=== PATIENT | female | born 1940 | race Caucasian/White ===

== ENCOUNTER 2020-02-24 05:35 | Inpatient (IN) | payer MEDICARE, MEDICAID, SELFPAY ==
[2020-02-24] VITALS (12 sets, daily range): BP systolic 110–172; BP diastolic 57–84; PULSE 65–75; RESP 14–20; TEMP 36.4–36.6; O2SAT 92–100; BMI 21.6
--- NOTE | 2020-02-24 06:04 | ED_ITS ---
HPI - Abdominal Pain General: Chief Complaint: Abdominal Pain Stated Complaint: ABD PAIN Time Seen by Provider: 02/24/20 06:03 History of Present Illness: HPI narrative: 79-year-old female presents emergency room with chief complaint of abdominal pain. Patient refers pain to the right upper quadrant states it began about 1 AM when she got up she was moving around the house and felt like something dropped in the right upper quadrant because of severe pain since then she has some nausea but no vomiting no diarrhea. She has had this intermittently for the last months it is more intense tonight. She denies hematochezia melena hematemesis or coffee-ground emesis no dysuria urgency or frequency. She is not really taking anything for it. No previous abdominal surgeries. Patient has had symptoms of right upper quadrant pain for the last couple of months. She has noted that it is worse with eating spicy foods or fatty foods and dairy products. She has begun avoiding those. Associated Symptoms: Reports nausea; Denies bloating, chills, coffee ground emesis, constipation, diarrhea, dysuria, fever(s), hematochezia, hematemesis, melena and vomiting Review of Systems Const: Denies: fever, chills, body aches, change in appetite, fatigue or malaise ENMT: Denies: throat pain, ear pain, nasal discharge or nasal congestion Card: Denies: chest pain, edema, shortness of breath on exertion or shortness of breath when lying down Resp: Denies: shortness of breath, productive cough or non-productive cough GI: Reports: abdominal pain and nausea; Denies: vomiting, vomiting blood, coffee grounds in vomit, diarrhea, constipati on, bloating, blood in stool or black tarry stool : Denies: flank pain, difficulty urinating, painful urination, urinary frequency or urinary urgency Skin/Breast: Denies: rash or itching PFSH ED PFSH: Medical History Hypertension Hypothyroidism Osteoarthritis Family History Mother , Lived to the age of 103, healthy No problems noted. Social History Smoking and tobacco status: former smoker Alcohol intake: former Substance/Drug Use: never Physical Exam Const: COMMON NORMALS: average body habitus, oriented x3 and alert GENERAL APPEARANCE: cooperative, comfortable, well kempt and well developed NUTRITIONAL APPEARANCE: obese ORIENTATION/CONSCIOUSNESS: Yes awake, Yes oriented to person and Yes oriented to place HENMT: COMMON NORMALS: normocephalic, head/scalp atraumatic, EAC's normal, TM's normal bilaterally, external nose normal, moist oral mucous membranes and oropharynx normal HEAD & SCALP: normocephalic and atraumatic NOSE: external nose normal EXTERNAL AUDITORY CANAL: EAC's normal TYMPANIC MEMBRANE: TM's normal bilaterally MOUTH: oral and palatal mucosa normal, lip normal and tongue normal THROAT: posterior oropharynx normal and tonsils normal Eye: COMMON NORMALS: PERRL, EOMs intact bilaterally, conjunctivae normal and no scleral icterus CONJUNCTIVA: Yes conjunctivae normal PUPIL: Yes PERRL Neck/C-Spine: COMMON NORMALS: full ROM, no lymphadenopathy, supple, no meningeal signs and thyroid normal THYROID: thyroid normal and asymmetrical Lymph: LYMPHATIC: no lymphadenopathy noted Resp: COMMON NORMALS: normal respiratory effort, no retractions, no use of accessory muscles and clear to auscultation bilaterally AUSCULTATION: clear to auscultation bilaterally Cardio: COMMON NORMALS: regular rate and regular rhythm RATE: regular rate RHYTHM: regular rhythm HEART SOUNDS: no murmurs GI: COMMON NORMALS: normal to inspection, nondistended, normoactive bowel sounds and no hepatosplenomegaly AUSCULTATION: Yes normoactive bowel sounds PALPATION: Yes tender (Positive Peña sign) Details: RUQ and Yes no hepatosplenomegaly : COMMON NORMALS: Yes no CVA tenderness BLADDER/KIDNEY EXAM: Yes no CVA tenderness Back/Pelvis: COMMON NORMALS: no CVA tenderness LUMBAR SPINE/LOWER BACK: Yes normal to inspection Extremity: COMMON NORMALS: no clubbing, cyanosis or edema, no calf tenderness and no pedal edema Neuro: COMMON NORMALS: oriented x3 SENSORIUM/ORIENTATION: Yes alert, Yes oriented to person and Yes oriented to place MENINGEAL SIGNS: Yes no meningeal signs Psych: APPEARANCE: Yes well kempt Skin: COMMON NORMALS: no rashes or lesions noted and skin turgor normal GENERAL SKIN EXAM: no rashes or lesions noted and turgor normal Course Vital Signs: Vital signs: Vital Signs Temperature 98 F 02/25/20 04:00 Pulse Rate 84 02/25/20 04:00 Respiratory Rate 20 H 02/25/20 05:50 Blood Pressure 124/72 02/25/20 04:00 Pulse Oximetry 93 02/25/20 04:00 MDM - Abdominal Pain MDM Narrative: Medical decision making narrative: Patient has severe right upper quadrant pain to the point where it is difficult for her to take a deep breath. She has some moderate cirrhosis she has hydrops on her gallbladder with no evidence of stones. MRCP does not show any obstruction read the notes on the ultrasound and MRCP from Dr. Lucas. I discussed it with Dr. Lucas she feels this represents an acute cholecystitis. I have discussed with Dr. Ozuna as well as with Dr. Woodall. Dr. Ozuna will admit his primary. We have supplemented her potassium with IV. We will keep her n.p.o. I also covered her with Zosyn. She does have a mild relatively asymptomatic urinary tract infection which should be easily covered by the antibiotics we have given her. Lab Data: Labs: Lab Results 02/24/20 02/24/20 02/24/20 Range/Units 05:49 05:59 05:59 WBC 9.3 (4.0-10.0) 10^3/ uL RBC 5.10 (4.1-5.3) 10^6/u L Hgb 15.9 H (11.5-15.3) g/dL Hct 47.4 H (37.0-47.0) % MCV 92.9 (81-99) fL MCH 31.2 (28.0-34.0) pg MCHC 33.5 (30.0-36.0) g/dL RDW 15.9 H (12.1-15.1) % Plt Count 143 (130-400) 10^3/c mm MPV 10.2 (7.4-10.4) fL Neut % (Auto) 85.6 % Lymph % (Auto) 10.9 % Garfield % (Auto) 3.0 % Eos % (Auto) 0.1 % Baso % (Auto) 0.2 % Neut # (Auto) 8.0 H (1.8-7.7) 10^3/u L Lymph # (Auto) 1.0 (0.8-4.8) 10^3/u L Garfield # (Auto) 0.3 (0.2-0.9) 10^3/u L Eos # (Auto) 0.0 (0.0-0.8) 10^3/u L Baso # (Auto) 0.0 (0.0-0.1) 10^3/u L Nucleated RBC % (a uto) 0 % Nucleated RBCs # 0.0 /100WBC Sodium 139 (136-145) mmol/L Potassium 2.4 L* (3.5-5.1) mmol/L Chloride 96 L (98-107) mmol/L Carbon Dioxide 31 H (22-29) mmol/L Anion Gap 14.4 (5-19) BUN 12 (8-23) mg/dL Creatinine 0.6 (0.5-0.9) mg/dL Glucose 126 H (65-115) mg/dL Calculated Osmolal ity 286 (285-295) mOsm/k g Calcium 8.8 (8.5-10.5) mg/dL Magnesium (1.7-2.3) mg/dL Total Bilirubin 1.8 H (0.15-1.2) mg/dL AST 53 H (0-32) U/L ALT 36 H (0-33) U/L Alkaline Phosphata se 202 H (35-105) IU/L Total Protein 6.9 (6.6-8.7) g/dL Albumin 3.2 L (3.5-5.2) g/dL Globulin 3.7 (1.3-4.6) g/dL Lipase 26 (13-60) U/L Urine Color Yellow (Yellow) Urine Appearance Cloudy (CLEAR) Urine pH 6 (5-7) Ur Specific Gravit y 1.020 (1.005-1.030) Urine Protein Neg (Negative) Urine Glucose (UA) Norm (Normal) Urine Ketones Negative (Negative) Urine Blood Neg (Negative) Urine Nitrate Negative (Negative) Urine Bilirubin Neg (NEGATIVE) Urine Urobilinogen 1 H (Negative) mg/dL Ur Leukocyte Nichole ase Trace H (Negative) Urine RBC 0-4 H (0-2) /hpf Urine WBC 40-55 H (0-5) /hpf Ur Squamous Epith Cells 5-10 H (0-5) Ur Transition Epit h Cell 0-4 /hpf Urine Bacteria 4+ H (NONE) 02/24/20 Range/Units 05:59 WBC (4.0-10.0) 10^3/ uL RBC (4.1-5.3) 10^6/u L Hgb (11.5-15.3) g/dL Hct (37.0-47.0) % MCV (81-99) fL MCH (28.0-34.0) pg MCHC (30.0-36.0) g/dL RDW (12.1-15.1) % Plt Count (130-400) 10^3/c mm MPV (7.4-10.4) fL Neut % (Auto) % Lymph % (Auto) % Garfield % (Auto) % Eos % (Auto) % Baso % (Auto) % Neut # (Auto) (1.8-7.7) 10^3/u L Lymph # (Auto) (0.8-4.8) 10^3/u L Garfield # (Auto) (0.2-0.9) 10^3/u L Eos # (Auto) (0.0-0.8) 10^3/u L Baso # (Auto) (0.0-0.1) 10^3/u L Nucleated RBC % (a uto) % Nucleated RBCs # /100WBC Sodium (136-145) mmol/L Potassium (3.5-5.1) mmol/L Chloride (98-107) mmol/L Carbon Dioxide (22-29) mmol/L Anion Gap (5-19) BUN (8-23) mg/dL Creatinine (0.5-0.9) mg/dL Glucose (65-115) mg/dL Calculated Osmolal ity (285-295) mOsm/k g Calcium (8.5-10.5) mg/dL Magnesium 1.8 (1.7-2.3) mg/dL Total Bilirubin (0.15-1.2) mg/dL AST (0-32) U/L ALT (0-33) U/L Alkaline Phosphata se (35-105) IU/L Total Protein (6.6-8.7) g/dL Albumin (3.5-5.2) g/dL Globulin (1.3-4.6) g/dL Lipase (13-60) U/L Urine Color (Yellow) Urine Appearance (CLEAR) Urine pH (5-7) Ur Specific Gravit y (1.005-1.030) Urine Protein (Negative) Urine Glucose (UA) (Normal) Urine Ketones (Negative) Urine Blood (Negative) Urine Nitrate (Negative) Urine Bilirubin (NEGATIVE) Urine Urobilinogen (Negative) mg/dL Ur Leukocyte Nichole ase (Negative) Urine RBC (0-2) /hpf Urine WBC (0-5) /hpf Ur Squamous Epith Cells (0-5) Ur Transition Epit h Cell /hpf Urine Bacteria (NONE) Discharge Plan Discharge Patient Disposition: Admitted As Inpatient Admit Provider: Melinda Ozuna Clinical Impression: Cholecystitis, Hypertension, Acute hypokalemia, Cystitis Condition: Stable Interventions: ED Discharge Assessment Last Done: 02/24/20 14:52 Discharge Date/Time: 02/24/20 15:10 Coding Level of Care Code ED New Accounts Representative for Chg Fwd Exam Comprehensive
--- NOTE | 2020-02-24 06:07 | PC.NURSE ---
Tatiana Patel[facility] [phone] daughter
[2020-02-24] MEDS: sodium chloride 0.9% 500 ML 999 ML IV (06:15)
[2020-02-24 06:18] LABS: Basophils % 0.2 %; Eosinophils % 0.1 %; Hematocrit 47.4 % (37.0-47.0); Hemoglobin 15.9 g/dL (11.5-15.3); Lymphocytes % 10.9 %; Mean Corpuscular HGB Conc 33.5 g/dL (30.0-36.0); Mean Corpuscular Hemoglobin 31.2 pg (28.0-34.0); Mean Corpuscular Volume 92.9 fL (81-99); Mean Platelet Volume 10.2 fL (7.4-10.4); Monocytes # 0.3 10^3/uL (0.2-0.9); Neutrophils % 85.6 %; Nucleated Red Blood Cells % 0 %; Platelet Count 143 10^3/cmm (130-400); Red Cell Distribution Width 15.9 % (12.1-15.1); White Blood Count 9.3 10^3/uL (4.0-10.0)
[2020-02-24] MEDS: ondansetron 2 mg/ML SDV 2 mL 4 MG IVP (06:18)
--- NOTE | 2020-02-24 06:18 | US_ITS ---
WS: [id number] RIGHT UPPER QUADRANT ULTRASOUND HISTORY: Abdominal pain COMPARISON: None available. Liver: 12.0 cm in length. Coarsened hepatic echotexture with undulating nodular surface. No bile duct dilatation. Variable echogenicity may be related to cirrhosis but underlying neoplasm not excluded. Small amount of fluid adjacent to the liver capsule. Gallbladder: Gallbladder measures 9.2 cm in length. Transverse diameter 4.0 cm. No wall thickening or stones. CBD: 1.0 cm Pancreas: Not visualized. Right kidney: 10.1 cm in length. Normal echogenicity with no mass or hydronephrosis. Aorta and IVC: Unremarkable. Small amount of ascites. 3. Recommendation: Follow-up CT abdomen and pelvis with IV and oral contrast to better evaluate the liver and gallbladder. US/US gall bladder [id number] IMPRESSION: 1. Abnormal liver echotexture. Probably on the basis of cirrhosis. Infiltratin g neoplasm not excluded. 2. Abnormal gallbladder. Mild gallbladder hydrops with mildly dilated common b ile duct.
[2020-02-24 06:21] LABS: Add Urine Microscopic? YES; Bilirubin Urine Neg (NEGATIVE); Blood Urine Neg (Negative); Glucose Urine UA Norm (Normal); Ketones Urine Negative (Negative); Leukocyte Esterase Urine Trace (Negative); Nitrate Urine Negative (Negative); Protein Urine Neg (Negative); Urine Appearance Cloudy (CLEAR); Urine Color Yellow (Yellow); Urobilinogen Urine 1 mg/dL (Negative); pH Urine 6 (5-7)
[2020-02-24] MEDS: morphine 4 mg/mL SDV 1 mL 2 MG IVP (06:28)
[2020-02-24 06:31] LABS: Alanine Aminotransferase 36 U/L (0-33); Albumin Level 3.2 g/dL (3.5-5.2); Alkaline Phosphatase 202 IU/L (35-105); Anion Gap 14.4 (5-19); Aspartate Amino Transferase 53 U/L (0-32); Blood Urea Nitrogen 12 mg/dL (8-23); Calcium 8.8 mg/dL (8.5-10.5); Carbon Dioxide 31 mmol/L (22-29); Chloride 96 mmol/L (98-107); Globulin 3.7 g/dL (1.3-4.6); Glucose 126 mg/dL (65-115); Lipase 26 U/L (13-60); Osmolality Calculated 286 mOsm/kg (285-295); Sodium 139 mmol/L (136-145); Total Bilirubin 1.8 mg/dL (0.15-1.2); Total Protein 6.9 g/dL (6.6-8.7)
[2020-02-24 06:40] LABS: Potassium 2.4 mmol/L (3.5-5.1)
[2020-02-24 06:51] LABS: Add Urine Culture? Yes; Bacteria Urine 4+; RBC Urine 0-4 /hpf (0-2); Transitional Epi Cells Urine 0-4 /hpf; WBC Urine 40-55 /hpf (0-5)
[2020-02-24] MEDS: sodium chlor 0.9% + KCl 20 mEq 20 MEQ/1,000 ML BAG 125 MEQ IV (07:30)
[2020-02-24] MEDS: morphine 4 mg/mL SDV 1 mL IVP ×2 (07:30→11:04)
[2020-02-24] MEDS: piperacillin-tazobactam 3.375 GM in sodium chloride 0.9% (plus) 50 ML IV ×2 (08:31→18:35)
[2020-02-24] MEDS: potassium chloride premix 40 MEQ/100 ML PREMIX 25 MEQ IV (08:31)
--- NOTE | 2020-02-24 08:34 | MR_ITS ---
WS: [id number] MRCP (MAGNETIC RESONANCE CHOLANGIOPANCREATOGRAPHY) HISTORY: possible billary obstruction COMPARISON: 02/24/2020 gallbladder ultrasound. TECHNIQUE: Multiple sequences are performed to evaluate the intra and extrahepatic ducts. Gallbladder measures 8.5 cm in length. Transverse diameter 3.4 cm. No intraluminal filling defect. Th ere is pericholecystic fluid and a small amount of fluid around the liver and spleen. Very mild centr al intrahepatic dilatation. Common bile duct is dilated measuring up to 9 mm. Duct tapers distally to wards the ampulla of the bladder. No obstructing stone. Cannot exclude a stenosis at the ampulla Vate r. Cirrhosis. Small hiatal hernia. Pancreatic duct measures 2 mm. MR/MR MRCP [id number] IMPRESSION: 1. Mildly hydropic gallbladder without stones. Findings suspicious for cholecy stitis. 2. Dilated common bile duct and central hepatic ducts. No obstructing stone id entified. Consider stricture at the ampulla of Vater. 3. Small amount of ascites around the spleen and pancreas.
--- NOTE | 2020-02-24 09:41 | PC.NURSE ---
pt transported to MRI at [facility] by ambulance
--- NOTE | 2020-02-24 10:46 | PC.NURSE ---
pt returned from MRI at this time
--- NOTE | 2020-02-24 10:59 | XR_ITS ---
WS: [id number] PORTABLE CHEST HISTORY: dyspnea/cough COMPARISON: None available. Mild emphysema. Central RIGHT lung granuloma. No pleural effusion or pneumothorax. Cardiac size: Normal. Mediastinum/Aorta: Normal mediastinum. No osseous abnormality seen. XR/XR chest 1V portable [id number] IMPRESSION: Unremarkable portable chest.
--- NOTE | 2020-02-24 11:01 | PC.NURSE ---
pt continues to be hypoxic on room air (86%) and requires supplemental oxygen via nasal cannula which she does not where at home. ED Physician notified and orders received.
--- NOTE | 2020-02-24 12:21 | PC.NURSE ---
Dr. Jj at bedside to evaluate patient
--- NOTE | 2020-02-24 13:05 | PM.HP ---
Providers/Chief Complaint Admitting Physician: Melinda Ozuna DO Chief Complaint: ABD PAIN History of Present Illness Bel Russell is a 79 year old female with a past medical history of hypertension, hypothyroidism, osteoarthritis and COPD that presented to the emergency department today for abdominal pain. She stated that she has been having intermittent right upper quadrant abdominal pain that is worse with eating over the past 3 to 4 months. She stated that this morning she woke up at 1 AM to let her dogs out and she began noticing significantly worsening pain in the right upper quadrant. She stated that the pain is typically worse with any type of dairy products or spicy foods. She stated that she has associated nausea with this. She reported that she has been eating a lot of applesauce as it does not cause her pain to recur. Patient presented to the emergency department today due to concern for abdominal discomfort noted to have concern for cholecystitis therefore general surgeon was consulted. Patient was made aware of the concern but reported that she would like to hold off on any surgical intervention at this time if possible. Review of Systems Const: Denies: fever or chills Eyes: Denies: change in vision ENMT: Denies: nasal congestion Card: Denies: chest pain, palpitations or edema Resp: Denies: shortness of breath, productive cough or coughing up blood GI: Reports: abdominal pain and nausea; Denies: vomiting, diarrhea, constipation, blood in stool or black tarry stool : Denies: painful urination or blood in urine Musc: Denies: extremity pain or muscle cramps Skin/Breast: Denies: rash or new lesion Neuro: Denies: headache or dizziness Psych: Denies: anxiety or depression Endo: Denies: excessive urination or hot flashes Yovany/Lymph: Denies: easy bruising or easy bleeding Medications/Allergies Home Medications Medication Instructions Recorded Confirmed Last Taken Type acetaminophen [Tylenol Extra 1,000 mg PO TID PRN 02/24/20 02/24/20 02/24/20 01:03 History Strength] albuterol sulfate [Ventolin HFA] 2 puff INHALATION Q6H PRN 02/24/20 02/24/20 02/24/20 History diclofenac sodium 75 mg PO DAILY 02/24/20 02/24/20 Unknown History levothyroxine 88 mcg PO DAILY 02/24/20 02/24/20 02/23/20 History lisinopril 20 mg PO DAILY 02/24/20 02/24/20 Unknown History tramadol 50 mg PO Q6H PRN 02/24/20 02/24/20 Unknown History Allergies Allergy/AdvReac Type Severity Reaction Status Date / Time No Known Allergies Allergy Verified 02/24/20 05:43 PFSH Acute PFSH: Medical History (Updated 02/24/20 @ 13:11 by Melinda Ozuna DO) Hypertension Hypothyroidism Osteoarthritis Family History (Updated 02/24/20 @ 13:07 by Melinda Ozuna DO) Mother , Lived to the age of 103, healthy No problems noted. Social History (Updated 02/24/20 @ 13:08 by Melinda Ozuna DO) Smoking and tobacco status: former smoker Alcohol intake: former Substance/Drug Use: never Vitals/I&O/Wt Last Vital Signs Pulse 75 02/24/20 11:00 Resp 14 02/24/20 06:28 BP 128/58 02/24/20 11:00 Pulse Ox 96 02/24/20 11:00 02/23/20 02/24/20 02/24/20 22:59 06:59 14:59 Intake Total 550 / 550 Balance 550 / 550 Weight last 48 hrs Weight 58.967 kg Physical Exam Const: COMMON NORMALS: oriented x3 and alert GENERAL APPEARANCE: cooperative ORIENTATION/CONSCIOUSNESS: Yes awake, Yes oriented to person, Yes oriented to place and Yes oriented to time HENMT: COMMON NORMALS: normocephalic and head/scalp atraumatic HEAD & SCALP: normocephalic and atraumatic Eye: COMMON NORMALS: PERRL PUPIL: Yes PERRL Neck/C-Spine: COMMON NORMALS: supple GENERAL: Yes normal visual inspection Resp: COMMON NORMALS: normal respiratory effort and clear to auscultation bilaterally EFFORT & INSPECTION: Yes able to speak in complete sentences AUSCULTATION: clear to auscultation bilaterally, no rhonchi and no wheezes OTHER: Faint expiratory wheezing bilaterally Cardio: COMMON NORMALS: regular rate, regular rhythm and no murmurs RATE: regular rate RHYTHM: regular rhythm GI: INSPECTION: No abdominal distension AUSCULTATION: Yes normoactive bowel sounds PALPATION: Yes soft OTHER: Tender to palpation in the right upper quadrant Extremity: COMMON NORMALS: no clubbing, cyanosis or edema and no calf tenderness Neuro: COMMON NORMALS: oriented x3, CN's II-XII intact bilaterally, moves all extremities and no focal motor deficits SENSORIUM/ORIENTATION: Yes alert, Yes oriented to person, Yes oriented to place and Yes oriented to time SPEECH: speech normal Psych: COMMON NORMALS: mental status grossly normal and cooperative Skin: COMMON NORMALS: no rashes or lesions noted GENERAL SKIN EXAM: no rashes or lesions noted Data : 02/24/20 05:59 02/24/20 05:59 CXR: I personally reviewed and interpreted this imaging study as follows: Radiologist's impression: IMPRESSION: Unremarkable portable chest. MRI: I personally reviewed and interpreted this imaging study as follows: Radiologist's impression: MRCP: IMPRESSION: 1. Mildly hydropic gallbladder without stones. Findings suspicious for cholecystitis. 2. Dilated common bile duct and central hepatic ducts. No obstructing stone identified. Consider stricture at the ampulla of Vater. 3. Small amount of ascites around the spleen and pancreas. US: Radiologist's impression: GB US IMPRESSION: 1. Abnormal liver echotexture. Probably on the basis of cirrhosis. Infiltrating neoplasm not excluded. 2. Abnormal gallbladder. Mild gallbladder hydrops with mildly dilated common bile duct. A&P Assessment and plan (1) Cholecystitis: General surgeon consulted, will follow with recommendations. Appreciate assistance in patient's care We will continue on IV antibiotics Patient would like to hold off on surgical intervention at this time and trial conservative measures. Imaging including MRCP as above We will recheck CBC, CMP and PT/INR in the morning Status: Acute Code(s): K81.9 - Cholecystitis, unspecified (2) Hypertension: Continue home lisinopril Status: Acute Code(s): I10 - Essential (primary) hypertension (3) Hypothyroidism: Continue home levothyroxine Status: Acute Code(s): E03.9 - Hypothyroidism, unspecified Additional A&P Information Cirrhosis: prior alcohol use, denies current use. With hyperbilirubinemia and transaminitis, could be secondary to acute concern as above or chronic due to cirrhosis. Will recheck labs in the morning Osteoarthritis Hypokalemia: Continue with potassium replacement, NS with KCL ordered Likely undiagnosed COPD, recommend outpatient PFTs DVT ppx: SCD/lovenox Diet: NPO Code status: Full Code Attestations Medical Necessity Statement*: Patient requires hospitalization due to cholecystitis, expected stay greater than 2 midnights Coding Level of Care Code Acute Firearms Model Maker for Chg Fwd Diagnoses Cholecystitis K81.9 Hypertension I10 Hypothyroidism E03.9
--- NOTE | 2020-02-24 13:19 | PM.CONSULT ---
Providers/Reason For Consult Consulting Physican/Specialty*: Ramesh Miller MD Reason for Consult*: Abdominal pain History of Present Illness History of Present Illness Chief Complaint: Abdominal pain History of present illness: Ms. Bel Russell is a pleasant 79 year old female presents to the emergency department with worsening right upper quadrant abdominal pain since 1:00 in the morning, the pain got worse she decided to seek medical advice, pain is mostly confined to the right upper quadrant without being referred, no other associated constitutional symptoms except for being weak. She denies history of jaundice fevers or chills. Also was found to have UTI on her urinalysis Further imaging studies showed: Ultrasound liver and gallbladder 1. Abnormal liver echotexture. Probably on the basis of cirrhosis. Infiltrating neoplasm not excluded. 2. Abnormal gallbladder. Mild gallbladder hydrops with mildly dilated common bile duct. MRCP: 1. Mildly hydropic gallbladder without stones. Findings suspicious for cholecystitis. 2. Dilated common bile duct and central hepatic ducts. No obstructing stone identified. Consider stricture at the ampulla of Vater. 3. Small amount of ascites around the spleen and pancreas. General surgery was consulted for further evaluation and potential management Patient was seen and evaluated in the ER Review of Systems General: Reports: 10 or more systems reviewed and unremarkable except in HPI and below Meds/Allergies Home Medications and Allergies Home Medications Medication Instructions Recorded Confirmed Type acetaminophen [Tylenol Extra 1,000 mg PO TID PRN 02/24/20 02/24/20 History Strength] albuterol sulfate [Ventolin HFA] 2 puff INHALATION Q6H PRN 02/24/20 02/24/20 History diclofenac sodium 75 mg PO DAILY 02/24/20 02/24/20 History levothyroxine 88 mcg PO DAILY 02/24/20 02/24/20 History lisinopril 20 mg PO DAILY 02/24/20 02/24/20 History tramadol 50 mg PO Q6H PRN 02/24/20 02/24/20 History Allergies Allergy/AdvReac Type Severity Reaction Status Date / Time No Known Allergies Allergy Verified 02/24/20 13:23 Current Medications Current Medications Generic Name Dose Route Start Last Admin Trade Name Freq PRN Reason Stop Dose Admin Potassium Chloride/Sodium Chloride 20 meq in 1,000 mls @ 125 mls/hr 02/24/20 06:15 02/24/20 07:30 Sodium Chlor 0.9% + Kcl 20 Meq IV 125 mls/hr .Q8H JAYLEN Administration PFSH Acute PFSH: Medical History Hypertension Hypothyroidism Osteoarthritis Family History Mother , Lived to the age of 103, healthy No problems noted. Social History Smoking and tobacco status: former smoker Alcohol intake: former Substance/Drug Use: never Vitals/I&O/Wt Last Vital Signs Pulse 65 02/24/20 13:10 Resp 14 02/24/20 06:28 BP 111/57 02/24/20 13:10 Pulse Ox 100 02/24/20 13:10 02/23/20 02/24/20 02/24/20 22:59 06:59 14:59 Intake Total 550 / 550 Balance 550 / 550 Weight last 48 hrs Weight 130 lb Physical Exam Narrative: EXAM NARRATIVE: Patient is conscious alert oriented X3 BMI 22 Head and neck examination PERRLA no masses no cervical lymphadenopathy no jaundice Cardiac examination audible S1-S2 no murmurs no gallops no arrhythmias Chest is clear bilateral,abscence of Rhonchi or wheezes,no surgical emphysema Abdomen right upper quadrant tenderess, with positive Peña's sign, nondistended soft no organomegaly guarding or rigidity/no signs of peritonitis Extremities no cyanosis no clubbing no edema A&P Assessment and plan (1) Cholecystitis: After thorough history physical examination and reviewing the chart and images with my personal interpretation, I do believe based on the findings patient does have symptomatic cholecystitis yet acalculus, that likely would require laparoscopic cholecystectomy possible open. Also an attempt to place a cholecystostomy tube was discussed with Dr. Lucas radiologist yet in the presence of liver cirrhosis she felt less enthusiastic to entertain this approach. At this point I did offer the patient potential surgical intervention but she wants to defer and she prefers to be treated conservatively and have it on elective basis. I did raise my concern about the elevated liver function test in the presence of unclear potential stricture at the distal CBD that may require ERCP particularly if her liver function test continues to trend up, patient understands and she also understands about her liver cirrhosis condition can be a cause of her elevated LFTs. We will continue to follow with electrolyte adjustment per hospitalist service and will have the patient on Zosyn as an antimicrobial therapy We will defer treatment of UTI to Dr. Ozuna Repeated physical examination Thank you for consulting general surgery to participate taking care Ms. Russell Status: Acute Code(s): K81.9 - Cholecystitis, unspecified Consult Attestations Medical Necessity Statement: Per hospitalist service Time Spent in Patient Care: 16 - 35 minutes (>than 50% of time spent in counselling and/or direct pt care on unit). Coding Level of Care Code Acute Health Care Legal Assistant for g Jluis Diagnoses Cholecystitis K81.9
[2020-02-24 14:14] LABS: Magnesium 1.8 mg/dL (1.7-2.3)
[2020-02-24] MEDS: sodium chlor 0.9% + KCl 20 mEq 20 MEQ/1,000 ML BAG 75 MEQ IV (16:19)
[2020-02-24] MEDS: enoxaparin 40 mg/0.4 mL Syringe SUBCUT (16:19)
[2020-02-24 21:00] LABS: Potassium 3.6 mmol/L (3.5-5.1)
[2020-02-25] VITALS (12 sets, daily range): BP systolic 92–130; BP diastolic 51–79; PULSE 71–84; RESP 16–20; TEMP 36.6–36.9; O2SAT 92–100
[2020-02-25] MEDS: morphine 4 mg/mL SDV 1 mL 2 MG IVP ×3 (00:33→16:35)
[2020-02-25] MEDS: piperacillin-tazobactam 3.375 GM in sodium chloride 0.9% (plus) 50 ML IV ×3 (02:08→17:26)
[2020-02-25 05:44] LABS: Basophils % 0.1 %; Hematocrit 38.9 % (37.0-47.0); Hemoglobin 12.6 g/dL (11.5-15.3); Lymphocytes # 1.4 10^3/uL (0.8-4.8); Lymphocytes % 12.3 %; Mean Corpuscular HGB Conc 32.4 g/dL (30.0-36.0); Mean Corpuscular Hemoglobin 32.1 pg (28.0-34.0); Mean Corpuscular Volume 99.2 fL (81-99); Mean Platelet Volume 10.5 fL (7.4-10.4); Monocytes # 0.7 10^3/uL (0.2-0.9); Monocytes % 5.7 %; Neutrophils # 9.4 10^3/uL (1.8-7.7); Neutrophils % 81.4 %; Nucleated Red Blood Cells % 0.3 %; Platelet Count 88 10^3/cmm (130-400); Red Blood Count 3.92 10^6/uL (4.1-5.3); Red Cell Distribution Width 16.7 % (12.1-15.1); White Blood Count 11.6 10^3/uL (4.0-10.0)
[2020-02-25 05:54] LABS: INR 1.45 (0.8-1.2)
[2020-02-25 05:56] LABS: Alanine Aminotransferase 22 U/L (0-33); Albumin Level 2.1 g/dL (3.5-5.2); Alkaline Phosphatase 117 IU/L (35-105); Anion Gap 10.8 (5-19); Aspartate Amino Transferase 35 U/L (0-32); Blood Urea Nitrogen 17 mg/dL (8-23); Carbon Dioxide 26 mmol/L (22-29); Chloride 106 mmol/L (98-107); Glucose 105 mg/dL (65-115); Osmolality Calculated 285 mOsm/kg (285-295); Potassium 3.8 mmol/L (3.5-5.1); Sodium 139 mmol/L (136-145); Total Bilirubin 1.3 mg/dL (0.15-1.2); Total Protein 5.1 g/dL (6.6-8.7)
--- NOTE | 2020-02-25 07:58 | PM.PN ---
Subjective Subjective: Interval history: Patient overall feels better No acute events overnight Trending down and liver function tests Vitals/I&O/Wt Last Vital Signs Temp 98.0 F 02/25/20 07:35 Pulse 77 02/25/20 07:35 Resp 16 02/25/20 07:35 BP 101/51 02/25/20 07:35 Pulse Ox 93 02/25/20 07:35 02/24/20 02/25/20 02/25/20 22:59 06:59 14:59 Intake Total 1000 / 1650 50 / 1700 1050 / 1050 Output Total 500 / 500 Balance 1000 / 1650 -450 / 1200 1050 / 1050 Weight last 48 hrs Weight 129 lb 12.8 oz Weight 130 lb Physical Exam Narrative: EXAM NARRATIVE: Patient is conscious alert oriented X3 BMI 22 Head and neck examination PERRLA no masses no cervical lymphadenopathy no jaundice Abdomen less tender nondistended soft no organomegaly guarding or rigidity/no signs of peritonitis Data : 02/25/20 05:25 02/25/20 05:25 A&P Assessment and plan (1) Cholecystitis: We will start the patient slowly on clear liquid Patient continues to show disinterest in surgery as of now and she is more willing as an elective procedure down the road Continue UTI management per hospitalist service Repeated physical examination Thank you for consulting general surgery to participate taking care Ms. Russell Status: Acute Code(s): K81.9 - Cholecystitis, unspecified Attestations Medical Necessity Statement*: Per hospitalist service Time Spent in Patient Care: 16 - 35 minutes (>than 50% of time spent in counselling and/or direct pt care on unit). Coding Level of Care Code Acute Bookkeeping Teacher for [facility] Jluis Diagnoses Cholecystitis K81.9
[2020-02-25] MEDS: levothyroxine 88 mcg Tablet PO (09:15)
--- NOTE | 2020-02-25 10:31 | XRR_ITS ---
PROCEDURE INFORMATION: Exam: XR Chest, 1 View Exam date and time: 02/25/2020 10:32 AM Age: 79 years old Clinical indication: Pain; Shortness of breath; Other: Epigastric; Additional info: Sob/copd TECHNIQUE: Imaging protocol: XR of the chest Views: 1 view. COMPARISON: CR XR chest 1V portable [id number] 02/24/2020 11:37 AM FINDINGS: Lungs: Calcified granuloma within the right mid lung is again noted. Coarse interstitial markings appear unchanged. There is no focal consolidation. Pleural space: No significant pleural effusion. No discernible pneumothorax. Heart/Mediastinum: No cardiomegaly. Bones/joints: Unremarkable for technique. XR/XR chest 1V [id number] IMPRESSION: 1. No radiographic evidence of an acute cardiopulmonary process.
[2020-02-25] MEDS: TRAMadol 50 mg Tablet PO (11:54)
--- NOTE | 2020-02-25 12:08 | PC.CHAP ---
Pastoral Care Encounter/Spiritual Assessment Type of Contact [] Declined pillowcase folder visit [] Patient/Family/Request visit [] Outpatient visit [] Follow-up visit [] Physician referral [] Code/Alert [] Routine visit [] Staff referral [] Actively dying [X] Patient sleeping [] Family support [] [] Out of room [] Palliative care [] [] Receiving care in room [] Pre-surgical visit [] Trauma [] Long length of stay [] ICU visit [] Other: Relational/Emotional Strength [] Patient feels connected with others/family/visitors/staff [] Distress [] Loneliness/isolation [] Abandonment Spirituality of Patient [] Person of Shelia [] Attends Orthodoxy of their Shelia [] Believes in Prayer [] Reads Bible or Pentecostal materials [] There are Spiritual issues to be addressed Electricity Trader Interventions [] Prayer [] Active listening [] Non-anxious presence [] Spiritual/emotional support [] Crisis/trauma care [] Spiritual counseling [] Bereavement support [] Provided bereavement packet [] Provided Bible/devotional materials [] Provided toy/stuffed animal, coloring book to patient or family member [] Provided Communion [] Anointing/[place] [] Salvation [] Completed spiritual assessment [] Other: Impact on Illness or Injury [] Angry [] Fearful [] Anxious [] Often cries [] Exhaustion [] Unable to work [] Unable to attend orthodoxy [] Unable to walk/stand [] Unable to read [] Unable to drive [] Unable to eat/drink [] Unable to sleep [] Unable to be with family [] Patient intubated [] Other: Summary NEED NEXT SHIFT FOLLOW UP Time spent with patient
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
[2020-02-25] MEDS: enoxaparin 40 mg/0.4 mL Syringe SUBCUT (17:26)
[2020-02-25] MEDS: ipratropium-albuterol 3 mL Neb INHALATION (21:49)
[2020-02-26] VITALS (10 sets, daily range): BP systolic 100–109; BP diastolic 56–69; PULSE 72–76; RESP 17–22; TEMP 36.4–36.8; O2SAT 86–95
[2020-02-26] MEDS: TRAMadol 50 mg Tablet PO (02:45)
[2020-02-26] MEDS: morphine 4 mg/mL SDV 1 mL 2 MG IVP (02:50)
[2020-02-26] MEDS: ipratropium-albuterol 3 mL Neb INHALATION ×2 (02:50→09:15)
[2020-02-26] MEDS: piperacillin-tazobactam 3.375 GM in sodium chloride 0.9% (plus) 50 ML IV ×2 (03:49→09:03)
[2020-02-26 05:38] LABS: Basophils % 0.1 %; Eosinophils % 0.4 %; Hematocrit 38.9 % (37.0-47.0); Hemoglobin 12.5 g/dL (11.5-15.3); Lymphocytes # 1.4 10^3/uL (0.8-4.8); Lymphocytes % 17.4 %; Mean Corpuscular HGB Conc 32.1 g/dL (30.0-36.0); Mean Corpuscular Hemoglobin 31.1 pg (28.0-34.0); Mean Corpuscular Volume 96.8 fL (81-99); Mean Platelet Volume 10.9 fL (7.4-10.4); Monocytes # 0.5 10^3/uL (0.2-0.9); Monocytes % 6.1 %; Neutrophils # 5.9 10^3/uL (1.8-7.7); Neutrophils % 75.7 %; Nucleated Red Blood Cells % 0 %; Platelet Count 77 10^3/cmm (130-400); Red Blood Count 4.02 10^6/uL (4.1-5.3); White Blood Count 7.7 10^3/uL (4.0-10.0)
[2020-02-26 05:56] LABS: Alanine Aminotransferase 21 U/L (0-33); Albumin Level 2.2 g/dL (3.5-5.2); Alkaline Phosphatase 121 IU/L (35-105); Anion Gap 10.4 (5-19); Aspartate Amino Transferase 31 U/L (0-32); Blood Urea Nitrogen 21 mg/dL (8-23); Calcium 8.5 mg/dL (8.5-10.5); Carbon Dioxide 31 mmol/L (22-29); Chloride 103 mmol/L (98-107); Globulin 3.2 g/dL (1.3-4.6); Glucose 99 mg/dL (65-115); Osmolality Calculated 289 mOsm/kg (285-295); Potassium 3.4 mmol/L (3.5-5.1); Sodium 141 mmol/L (136-145); Total Bilirubin 1.1 mg/dL (0.15-1.2); Total Protein 5.4 g/dL (6.6-8.7)
[2020-02-26 06:10] LABS: Hepatitis A Antibody IgM. Non-Reactive (Nonreactive); Hepatitis B Core IgM Non-Reactive (Nonreactive); Hepatitis B Surface Antigen. Non-Reactive (Nonreactive); Hepatitis C Virus Antibody Non-Reactive (Nonreactive)
--- NOTE | 2020-02-26 07:04 | P.PN_ITS ---
Subjective Subjective: Interval history: Patient overall feels better, no acute events overnight She reports less tenderness on palpation of the right upper quadrant she continues to show interest in conservative measures. Resolution of transaminitis Patient so far tolerating well clear liquid diet Vitals/I&O/Wt Last Vital Signs Temp 97.5 F L 02/26/20 04:00 Pulse 72 02/26/20 04:00 Resp 17 02/26/20 04:00 BP 100/59 02/26/20 04:00 Pulse Ox 95 02/26/20 04:00 02/25/20 02/26/20 02/26/20 22:59 06:59 14:59 Intake Total 50 / 1868.958 240 / 2108.958 Output Total 400 / 400 Balance 50 / 1868.958 -160 / 1708.958 Weight last 48 hrs Weight 149 lb 8 oz Weight 129 lb 12.8 oz Physical Exam Narrative: EXAM NARRATIVE: Patient is conscious alert oriented X3 BMI 25 Head and neck examination PERRLA no masses no cervical lymphadenopathy no jaundice Abdomen less tender nondistended soft no organomegaly guarding or rigidity/no signs of peritonitis Data : 02/26/20 05:21 02/26/20 05:21 Micro: Microbiology 02/25/20 18:23 Blood Culture - Preliminary Blood SPECIMEN COLLECTED 02/25/20 18:28 Blood Culture - Preliminary Blood SPECIMEN COLLECTED 02/24/20 05:49 Urine Culture - Preliminary Urine,Clean Catch Strep agalactiae - (group b) A&P Assessment and plan (1) Cholecystitis: Patient can have her diet advanced as tolerated We will plan to have the patient follow-up with me as an outpatient for reevaluation for potential laparoscopic cholecystectomy Continue UTI management per hospitalist service Antimicrobial therapy per hospitalist service Thank you for consulting general surgery to participate taking care Ms. Russell Status: Acute Code(s): K81.9 - Cholecystitis, unspecified Attestations Medical Necessity Statement*: Per hospitalist service Time Spent in Patient Care: 16 - 35 minutes (>than 50% of time spent in counselling and/or direct pt care on unit) . Coding Level of Care Code Acute Survey Statistician for [facility] Jluis Diagnoses Cholecystitis K81.9
--- NOTE | 2020-02-26 08:51 | PM.DCS ---
Discharge Providers Date of Admission: 02/24/20 13:17 Date of Discharge: February 26, 2020 Attending Provider at Admission: Melinda Ozuna DO Attending Provider at Discharge: Oswaldo Negrete MD Diagnoses at Discharge Discharge Diagnosis (1) Cholecystitis: Status: Acute (2) Acute hypokalemia: Status: Acute (3) Cystitis: Status: Acute (4) Osteoarthritis: Status: Acute (5) Hypothyroidism: Status: Acute (6) Hypertension: Status: Acute Reason for Visit Reason for Visit: Reason For Visit: ABD PAIN Hospital Course Hospital Course: The patient presented to the emergency department on 02/24/2020 with significant right upper quadrant pain that was found to be cholecystitis. There is concern for a stricture in the distal common bile duct. The patient was evaluated by Dr. Miller and the patient was placed on Zosyn. The patient's pain was controlled. The patient requested to wait on surgical intervention until a later time and since her liver enzymes have began to decrease and there are not signs of continued obstruction of the common bile duct on labs, Dr. Nguyen is felt that this would be reasonable. The patient is currently doing well with clear liquids and her pain is starting to improve. She still has some pain in the right upper quadrant, however it is improving. The patient will be discharged home on Cipro and Flagyl. I will also discharge her with pain medication as needed. The patient is to return to the emergency department if her pain is worsening again. The patient is to follow-up with Dr. Miller as an outpatient over the next week to set up an outpatient laparoscopic cholecystectomy. The patient was also found to have GBS in her urine. She will be discharged home with Keflex for treatment. Overall the patient is doing well and request to be discharged home. All questions were answered. Physical Exam Narrative: EXAM NARRATIVE: General: Alert and oriented x3 Cardiac: Regular rate and rhythm without murmurs Lungs: Decreased air entry bilaterally without wheezes, crackles or rhonchi Abdomen: Soft and nontender diffusely with the exception of the right upper quadrant where there is mild to moderate pain. Peña sign is still positive. Extremities: No edema. Discharge Data Data Completed and Pending: Completed Studies During Hospitalization Category Date Time Status XR chest 1V [id number] Routine Exams 02/25/20 10:31 Completed XR chest 1V pantera ble [id number] Stat Exams 02/24/20 10:59 Completed MR MRCP 48103 [facility] t MRI 02/24/20 08:34 Completed US gall bladder 7 6705 Stat Ultrasound 02/24/20 06:18 Completed Pending at discharge Category Date Time Status Blood Culture Sta t Lab 02/25/20 18:23 Results Urine Culture Sta t Lab 02/24/20 05:49 Results Labs from last 24 hours 02/26/20 02/26/20 02/26/20 05:21 05:21 05:21 WBC 7.7 RBC 4.02 L Hgb 12.5 Hct 38.9 MCV 96.8 MCH 31.1 MCHC 32.1 RDW 17.0 H Plt Count 77 L MPV 10.9 H Neut % (Auto) 75.7 Lymph % (Auto) 17.4 Mower % (Auto) 6.1 Eos % (Auto) 0.4 Baso % (Auto) 0.1 Neut # (Auto) 5.9 Lymph # (Auto) 1.4 Mower # (Auto) 0.5 Eos # (Auto) 0.0 Baso # (Auto) 0.0 Nucleated RBC % (a uto) 0 Nucleated RBCs # 0.0 Sodium 141 Potassium 3.4 L Chloride 103 Carbon Dioxide 31 H Anion Gap 10.4 BUN 21 Creatinine 0.7 Glucose 99 Calculated Osmolal ity 289 Calcium 8.5 Total Bilirubin 1.1 AST 31 ALT 21 Alkaline Phosphata se 121 H Total Protein 5.4 L Albumin 2.2 L Globulin 3.2 Hepatitis A IgM Ab Non-reactive Hep Bs Antigen Non-reactive Hep B Core IgM Ab Non-reactive Hepatitis C Antibo dy Non-reactive Vitals: Last Vital Signs Temp 97.8 F 02/26/20 07:53 Pulse 72 02/26/20 07:53 Resp 22 H 02/26/20 07:53 BP 109/69 02/26/20 07:53 Pulse Ox 91 02/26/20 07:53 Discharge Plan Discharge Patient Disposition: Home, Self-Care Condition: Stable Prescriptions: New hydrocodone-acetaminophen 5-325 mg tablet 1 tab PO Q8H PRN (Reason: pain) Qty: 20 RF: 0 ciprofloxacin HCl 500 mg tablet 500 mg PO BID 10 Days Qty: 20 RF: 0 metronidazole 500 mg tablet 500 mg PO TID 10 Days Qty: 30 RF: 0 Continued lisinopril 20 mg tablet 20 mg PO DAILY RF: 0 tramadol 50 mg tablet 50 mg PO Q6H PRN (Reason: Pain) RF: 0 levothyroxine 88 mcg tablet 88 mcg PO DAILY RF: 0 diclofenac sodium 75 mg tablet,delayed release (DR/EC) 75 mg PO DAILY RF: 0 albuterol sulfate [Ventolin HFA] 90 mcg/actuation HFA aerosol inhaler 2 puff INHALATION Q6H PRN (Reason: Shortness Of Breath) RF: 0 Tylenol Extra Strength 500 mg Tablet 1,000 mg PO TID PRN (Reason: Pain) RF: 0 Discharge Orders: Discharge Order (Routine); Ordered 02/26/20 Ordered By: Oswaldo Negrete Referrals: Ana Paula Molina FNP [Family Provider] - 1 week Ramesh Miller MD [Physician] - 7-10 days Discharge Diet: As Directed and Full LIquid Discharge Activity: Increase activity as tolerated Activity Restrictions/Additional Instructions: If your pain begins to worsen again, please return to the emergency department for further evaluation. Discharge Attestations Time Spent in Discharge Care*: greater than 30 min Specific Discharge Activities: Specific discharge activities: educating patient and documenting/other paperwork Quality Metrics Clinical Quality Measures During this hospital stay, did patient experience: None Coding Level of Care Code Acute In Store Representative for [facility] Diagnoses Cholecystitis K81.9 Acute hypokalemia E87.6 Cystitis N30.90 Osteoarthritis M19.90 Hypothyroidism E03.9 Hypertension I10
[2020-02-26] MEDS: levothyroxine 88 mcg Tablet PO (09:03)
[2020-02-26] MEDS: lisinopril 20 mg Tablet PO (09:03)
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
== END 2020-02-26 14:48 | disposition home or self-care (01) | DRG 446 ==
LOC: ER 06:03 → MEDSURG 14:34
PROVIDERS: Emergency Medicine; Student in an Organized Health Care Education/Training Program; Admitting Provider Family Medicine; Emergency Provider Family Medicine; Family Provider Nurse Practitioner Family; Visit Provider Family Medicine
DX: K81.9 Cholecystitis, unspecified (principal); E87.6 Hypokalemia; N30.90 Cystitis, unspecified without hematuria; M19.90 Unspecified osteoarthritis, unspecified site; E03.9 Hypothyroidism, unspecified; I10 Essential (primary) hypertension; Z79.82 Long term (current) use of aspirin; Z79.891 Long term (current) use of opiate analgesic; Z79.2 Long term (current) use of antibiotics; Z79.52 Long term (current) use of systemic steroids; Z79.890 Hormone replacement therapy
CPT/HCPCS: 12345; 36415; 71045; 74181; 76705; 80053; 80074; 81001; 83690; 83735; 84132; 85025; 85610; 87040; 87086; 94640; 94664; 96372; 96375; 97110; 97162; 97530; 99283; J1650; J2270; J2405; J2543; J3480; J7040

== ENCOUNTER 2020-05-08 09:29 | Outpatient (CLI) | payer MEDICARE, MEDICAID, SELFPAY ==
--- NOTE | 2020-05-08 09:40 | NM_ITS ---
WS: [id number] NUCLEAR MEDICINE HIDA SCAN WITH GALLBLADDER EJECTION FRACTION HISTORY: CHOLECYSTITIS COMPARISON: 09/26/2016 and gallbladder ultrasound 02/24/2020 TECHNIQUE: The patient was intravenously injected with 8.0 mCi of TC99m Mebrofenin. Immediate imaging over the right upper quadrant was followed by 5 minute image and additional images for a total of 60 minutes. Normal uptake of radiotracer throughout the liver. Activity identified in the gallbladder at 10 minutes and well distended by 60 minutes. Activity in the proximal small bowel was seen by 10 minutes. Good washout of the radiotracer from the liver by 60 minutes. The patient then drank 8 ounces of Ensure Plus. Ejection fraction at 60 minutes was abnormal. After E nsure the gallbladder continued to fill without contracted. Post fatty meal symptoms: None. NM/NM hepatobiliary w phar* [id number] IMPRESSION: 1. Normal HIDA scan. 2. Gallbladder continued to fill without contacting. Probably representing crystal iary dyskinesia.
== END 2020-05-08 09:30 | disposition home or self-care (01) ==
LOC: RAD 09:36
PROVIDERS: PCP Physician Assistant Medical; Visit Provider Surgery
DX: K81.9 Cholecystitis, unspecified (principal)
CPT/HCPCS: 78227; A9537

== ENCOUNTER 2021-06-15 08:05 | Emergency (ER) | payer MEDICARE, MEDICAID, SELFPAY ==
[2021-06-15 08:10] VITALS: BP 134/81; PULSE 85; RESP 18; TEMP 36.6; O2SAT 92; BMI 19.6
[2021-06-15 08:33] VITALS: BP 157/67; PULSE 83; RESP 20; O2SAT 93
--- NOTE | 2021-06-15 08:36 | ECG_ITS ---
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 Measurements Intervals [place] Rate: 72 P: 80 IN: 183 QRS: 47 QRSD: 106 T: 94 QT: 402 QTc: 442 Interpretive Statements SINUS RHYTHM WITH OCCASIONAL SUPRAVENTRICULAR PREMATURE COMPLEXES POSSIBLE LEFT ATRIAL ENLARGEMENT [-0.1mV P WAVE IN V1/V2] INCOMPLETE RIGHT BUNDLE BRANCH BLOCK [90+ ms QRS DURATION, TERMINAL R IN V1/V2, 40+ ms S IN I/aVL/V4/V5/V6] LEFT VENTRICULAR HYPERTROPHY AND ST-T CHANGE [VOLTAGE CRITERIA PLUS ST/T ABNORMALITY] Possible old septal OR ANTEROLATERAL MYOCARDIAL INFARCTION [40+ ms Q WAVE IN I/aVL/V3-V6], OF INDETERMINATE AGE No previous ECG available for comparison Electronically Signed On 06-15-2021 19:30:25 CDT by Sandhya Mckeon M.D. [id number]
--- NOTE | 2021-06-15 08:36 | XRR_ITS ---
PROCEDURE INFORMATION: Exam: XR Chest Exam date and time: 06/15/2021 8:36 AM Age: 80 years old Clinical indication: Cough; Additional info: Dyspnea/cough TECHNIQUE: Imaging protocol: XR of the chest. Views: 1 view. COMPARISON: CR XR chest 1V [id number] 02/25/2020 10:56 AM FINDINGS: Lungs: There is overinflation of the lungs with flattening of the diaphragm indicating emphysema. Scattered interstitial fibrosis is present. There is infiltrate in the periphery of the right lung base consistent with a right lower lobe pneumonia. A benign calcified granuloma is present in the right mid lung zone. Pleural spaces: Unremarkable. No pleural effusion. No pneumothorax. Heart/Mediastinum: Unremarkable. No cardiomegaly. Bones/joints: Unremarkable. XR/XR chest 1V portable [id number] IMPRESSION: 1. Pulmonary emphysema. 2. Right lower lobe pneumonia.
--- NOTE | 2021-06-15 08:52 | W.ED.SOB ---
HPI - SOB/Dyspnea General: Chief Complaint: Shortness of Breath/Dyspnea Stated Complaint: SOB, body aches Time Seen by Provider: 06/15/21 08:13 History of Present Illness: HPI Narrative: 80-year-old female comes in complaining of shortness of breath last night with some abdominal pain and nausea. She recently been on a course of antibiotics for cough. Seems to have improved slightly. Denies any dysuria urgency or frequency no chest pain no diarrhea. He states this began about a week ago she has been seen for up to antibiotics did not seem to improve things. She denies any diarrhea she denies any chest pain. MD elicited complaint: shortness of breath and cough Pertinent past history: COPD Onset (ago): week(s) Timing: constant Severity: moderate Exacerbating factors: nothing Relieving factors: nothing Known history of: COPD Associated symptoms: Reports chest congestion and cough; Deny abdominal pain, chest pain, diaphoresis, dizziness, extremity pain, fever(s), hemoptysis, lightheadedness, myalgias, nausea, orthopnea, palpitations, paresthesias, polydipsia, polyuria, rash, sense of impending doom, syncope or vomiting Treatment prior to arrival: none Review of Systems Const: Denies: fever(s) or diaphoresis ENMT: Denies: throat pain, ear or mastoid pain, nasal discharge or nasal congestion Card: Denies: chest pain, palpitations, lightheadedness, syncope or orthopnea Resp: Reports: chest congestion; Denies: hemoptysis GI: Denies: abdominal pain, nausea or vomiting : Denies: flank pain, difficulty voiding, dysuria, urinary frequency or urinary urgency Musc: Denies: extremity pain Skin/Breast: Denies: rash or pruritus Neuro: Denies: dizziness Endo: Denies: polyuria or polydipsia PFSH ED PFSH: Medical History (Updated 06/15/21 @ 13:26 by Dale Hilliard DO) Abdominal pain Hypertension Hypothyroidism Osteoarthritis Family History Mother , Lived to the age of 103, healthy No problems noted. Family/Other Cancer aunts and uncles Other CAD (coronary artery disease) Denies family history of Anesthesia complication Bleeding disorder Social History (Reviewed 06/15/21 @ 09:15 by MINESH Mendez Smoking and tobacco status: former smoker Alcohol intake: former Adopted: No Caregiver/support person: Yes Lives independently: Yes Household members: family Housing: House Marital status: / service: No Current occupational status: retired Pets and animals: No History of recent travel: No Sexually active: No Current gender identity: Female Shelia/Sabianist: Hinduism Physical Exam Const: COMMON NORMALS: no acute distress GENERAL APPEARANCE: cooperative and comfortable ORIENTATION/CONSCIOUSNESS: Yes awake, Yes oriented to person, Yes oriented to place and Yes oriented to time HENMT: COMMON NORMALS: normocephalic, atraumatic and hearing grossly normal bilaterally HEAD & SCALP: normocephalic and atraumatic Neck/C-Spine: COMMON NORMALS: no JVD Resp: COMMON NORMALS: normal respiratory effort, No retractions, No use of accessory muscles and clear to auscultation bilaterally AUSCULTATION: clear to auscultation bilaterally Cardio: COMMON NORMALS: no JVD, regular rate, regular rhythm and No murmurs present (Cardio) RATE: regular rate RHYTHM: regular rhythm GI: COMMON NORMALS: Soft to palpation and No hepatosplenomegaly present AUSCULTATION: Yes normoactive bowel sounds PALPATION: Yes Soft to palpation, No Tenderness to palpation present (GI), No Guarding due to palpation present (GI) and Yes No hepatosplenomegaly present Extremity: COMMON NORMALS: normal to inspection, capillary refill normal, no clubbing, cyanosis or edema, no calf tenderness and no pedal edema Neuro: SENSORIUM/ORIENTATION: Yes oriented to person, Yes oriented to place and Yes oriented to time Skin: COMMON NORMALS: no rashes or lesions noted GENERAL SKIN EXAM: no rashes or lesions noted Course Vital Signs: Vital signs: Vital Signs Temperature 98 F 06/15/21 08:10 Pulse Rate 87 06/15/21 13:46 Respiratory Rate 20 H 06/15/21 13:46 Blood Pressure 144/95 06/15/21 13:46 Pulse Oximetry 94 06/15/21 13:46 MDM - SOB/Dyspnea MDM Narrative: Medical decision making narrative: With community-acquired pneumonia and discussed with the patient she would rather be treated as an outpatient sats are good I think thatis appropriate at this point we will discharge her home on Levaquin daily follow-up if has any worsening or change symptoms Lab Data: Labs: Lab Results 06/15/21 06/15/21 06/15/21 Range/Units 08:43 08:43 08:43 WBC Cancelled Corrected WBC Cancelled RBC Cancelled Hgb Cancelled Hct Cancelled MCV Cancelled MCH Cancelled MCHC Cancelled RDW Cancelled Plt Count Cancelled MPV Cancelled Gran % Cancelled Neut % (Auto) Cancelled Lymph % (Auto) Cancelled [place] % (Auto) Cancelled Eos % (Auto) Cancelled Baso % (Auto) Cancelled Neut # (Auto) Cancelled Lymph # (Auto) Cancelled [place] # (Auto) Cancelled Eos # (Auto) Cancelled Baso # (Auto) Cancelled Absolute Gran (aut o) Cancelled Nucleated RBC % (a uto) Cancelled Nucleated RBCs # Cancelled Sodium Cancelled Potassium Cancelled Chloride Cancelled Carbon Dioxide Cancelled Anion Gap Cancelled BUN Cancelled Creatinine Cancelled GFR Calculation Cancelled Glucose Cancelled Calculated Osmolal ity Cancelled Calcium Cancelled Total Bilirubin Cancelled AST Cancelled ALT Cancelled Alkaline Phosphata se Cancelled Troponin T Baselin e Cancelled Troponin T 120 Min [place] (0-10) ng/L Delta Troponin T (0-10) ABS# NT-Pro-B Natriuret Pep Cancelled Total Protein Cancelled Albumin Cancelled Globulin Cancelled SARS-CoV-2 RNA (RT -PCR) (NOT DETECTED) SARS-CoV-2 Ag (Rap id) (Negative) 06/15/21 06/15/21 06/15/21 Range/Units 09:34 09:34 09:34 WBC 13.8 H Corrected WBC RBC 4.82 Hgb 14.7 Hct 42.6 MCV 88.4 MCH 30.5 MCHC 34.5 RDW 14.8 Plt Count 275 MPV 9.9 Gran % Neut % (Auto) 84.3 Lymph % (Auto) 6.7 [place] % (Auto) 6.6 Eos % (Auto) 0.7 Baso % (Auto) 0.1 Neut # (Auto) 11.64 H Lymph # (Auto) 0.9 [place] # (Auto) 0.9 Eos # (Auto) 0.1 Baso # (Auto) 0.0 Absolute Gran (aut o) Nucleated RBC % (a uto) 0 Nucleated RBCs # 0.0 Sodium 140 Potassium 3.0 L Chloride 98 Carbon Dioxide 29 Anion Gap 16.0 BUN 47 H Creatinine 0.8 GFR Calculation Not Reportable Glucose 120 H Calculated Osmolal ity 303 H Calcium 8.8 Total Bilirubin 0.2 AST 32 ALT 32 Alkaline Phosphata se 146 H Troponin T Baselin e 26 H Troponin T 120 Min [place] (0-10) ng/L Delta Troponin T (0-10) ABS# NT-Pro-B Natriuret Pep 1797 H Total Protein 6.4 L Albumin 3.5 Globulin 2.9 SARS-CoV-2 RNA (RT -PCR) (NOT DETECTED) SARS-CoV-2 Ag (Rap id) (Negative) 06/15/21 06/15/21 06/15/21 Range/Units 10:11 10:11 11:39 WBC Corrected WBC RBC Hgb Hct MCV MCH MCHC RDW Plt Count MPV Gran % Neut % (Auto) Lymph % (Auto) [place] % (Auto) Eos % (Auto) Baso % (Auto) Neut # (Auto) Lymph # (Auto) [place] # (Auto) Eos # (Auto) Baso # (Auto) Absolute Gran (aut o) Nucleated RBC % (a uto) Nucleated RBCs # Sodium Potassium Chloride Carbon Dioxide Anion Gap BUN Creatinine GFR Calculation Glucose Calculated Osmolal ity Calcium Total Bilirubin AST ALT Alkaline Phosphata se Troponin T Baselin e Troponin T 120 Min [place] 27.68 H (0-10) ng/L Delta Troponin T 1.68 (0-10) ABS# NT-Pro-B Natriuret Pep Total Protein Albumin Globulin SARS-CoV-2 RNA (RT -PCR) Not detected (NOT DETECTED) SARS-CoV-2 Ag (Rap id) Negative (Negative) Discharge Plan Discharge Patient Disposition: Home Clinical Impression: Community acquired pneumonia Condition: Stable Prescriptions: New levofloxacin 500 mg tablet 500 mg PO DAILY 7 Days RF: 0 No Action lisinopril 20 mg tablet 20 mg PO DAILY RF: 0 tramadol 50 mg tablet 50 mg PO Q6H PRN (Reason: Pain) RF: 0 levothyroxine 88 mcg tablet 88 mcg PO DAILY RF: 0 diclofenac sodium 75 mg tablet,delayed release (DR/EC) 75 mg PO DAILY RF: 0 albuterol sulfate [Ventolin HFA] 90 mcg/actuation HFA aerosol inhaler 2 puff INHALATION Q6H PRN (Reason: Shortness Of Breath) RF: 0 acetaminophen [Tylenol Extra Strength] 500 mg Tablet 1,000 mg PO TID PRN (Reason: Pain) RF: 0 hydrocodone-acetaminophen 5-325 mg tablet 1 tab PO Q8H PRN (Reason: pain) Qty: 20 RF: 0 albuterol sulfate 2.5 mg /3 mL (0.083 %) solution for nebulization 2.5 mg inhalation Q4H PRN (Reason: Shortness Of Breath) RF: 0 azithromycin 250 mg tablet 250 mg PO . DIRECTED PER ÁNGEL RF: 0 dexamethasone 4 mg tablet 4 mg PO BID RF: 0 Discharge Orders: Discharge ED (Routine); Ordered 06/15/21 Ordered By: Dale Hilliard Referrals: Jose Ramon Bonilla [Primary Care Provider] - Discharge Diet: Usual diet Discharge Activity: Increase activity as tolerated Patient Instructions: Opioid Safety Coding Level of Care Code ED Lemon Grower for Shu Fwd Exam Comprehensive
--- NOTE | 2021-06-15 08:57 | CTR_ITS ---
PROCEDURE INFORMATION: Exam: CT Abdomen And Pelvis With Contrast Exam date and time: 06/15/2021 8:57 AM Age: 80 years old Clinical indication: Abdominal pain; Generalized; Additional info: Abd pain TECHNIQUE: Imaging protocol: Computed tomography of the abdomen and pelvis with contrast. Radiation optimization: All CT scans at this facility use at least one of these dose optimization techniques: automated exposure control; mA and/or kV adjustment per patient size (includes targeted exams where dose is matched to clinical indication); or iterative reconstruction. Contrast material: OMNIPAQUE 300; Contrast volume: 75 ml; Contrast route: INTRAVENOUS (IV); COMPARISON: MR MRCP [id number] 02/24/2020 10:05 AM RADIATION DOSE METRICS: Total DLP (mGy-cm): 677.15 FINDINGS: Lungs: There is bilateral pulmonary emphysema. Infiltrates are present in the right lung base which may represent a pneumonia. Liver: Normal. No mass. Gallbladder and bile ducts: Normal. No calcified stones. No ductal dilation. Pancreas: Normal. No ductal dilation. Spleen: Normal. No splenomegaly. Adrenal glands: Normal. No mass. Kidneys and ureters: Normal. No hydronephrosis. Stomach and bowel: There is prominence of the amount of stool throughout the colon and rectum which may indicate constipation. There is no evidence of small bowel obstruction or dilatation. Appendix: No evidence of appendicitis. Intraperitoneal space: Unremarkable. No free air. No significant fluid collection. Vasculature: There is calcification of the aorta and iliac arteries but there is no aneurysm. Lymph nodes: Unremarkable. No enlarged lymph nodes. Urinary bladder: Unremarkable as visualized. Reproductive: Unremarkable as visualized. Bones/joints: Degenerative changes are present in the spine with joint space narrowing sclerosis and osteophytes. Soft tissues: Unremarkable. CT/CT abdomen pelvis w con* [id number] IMPRESSION: 1. Pulmonary emphysema. Right basilar infiltrate may be due to a right lower lobe pneumonia. 2. Prominent amount of stool consistent with constipation. 3. No acute abnormalities are seen in the abdomen and pelvis. Radiation Dose CTDIVOL = (mGy): DLP = 677.15 (mGy-cm)
[2021-06-15 09:13] VITALS: BP 139/58; PULSE 86; RESP 20; O2SAT 94
[2021-06-15 09:44] LABS: Basophils % 0.1 %; Eosinophils # 0.1 10^3/uL (0.0-0.8); Eosinophils % 0.7 %; Hematocrit 42.6 % (37.0-47.0); Hemoglobin 14.7 g/dL (11.5-15.3); Lymphocytes # 0.9 10^3/uL (0.8-4.8); Lymphocytes % 6.7 %; Mean Corpuscular HGB Conc 34.5 g/dL (30.0-36.0); Mean Corpuscular Hemoglobin 30.5 pg (28.0-34.0); Mean Corpuscular Volume 88.4 fL (81-99); Mean Platelet Volume 9.9 fL (7.4-10.4); Monocytes # 0.9 10^3/uL (0.2-0.9); Monocytes % 6.6 %; Neutrophils # 11.64 10^3/uL (1.8-7.7); Neutrophils % 84.3 %; Nucleated Red Blood Cells % 0 %; Platelet Count 275 10^3/cmm (130-400); Red Blood Count 4.82 10^6/uL (4.1-5.3); Red Cell Distribution Width 14.8 % (12.1-15.1); White Blood Count 13.8 10^3/uL (4.0-10.0)
[2021-06-15 10:00] LABS: Slide Review Slide Review Perform
[2021-06-15 10:11] LABS: Alanine Aminotransferase 32 U/L (0-33); Albumin Level 3.5 g/dL (3.5-5.2); Carbon Dioxide 29 mmol/L (22-29); Chloride 98 mmol/L (98-107); Globulin 2.9 g/dL (1.3-4.6); Sodium 140 mmol/L (136-145); Total Bilirubin 0.2 mg/dL (0.15-1.2)
[2021-06-15 10:14] VITALS: BP 142/58; PULSE 79; RESP 20; O2SAT 94
[2021-06-15 10:15] LABS: Troponin(5th) Baseline 26 ng/L (0-10)
--- NOTE | 2021-06-15 10:36 | ECG_ITS ---
[facility] Test Date: 2021-06-15 Pat Name: Bel Russell Department: Room: Gender: Female Time Analysis Clerk: : 1940 Requested By: Dale Lopez Order Number: [id number] Siobhan MD: Sandhya Mckeon M.D. Measurements Intervals [place] Rate: 82 P: 73 MT: 170 QRS: 52 QRSD: 103 T: 87 QT: 337 QTc: 395 Interpretive Statements SINUS RHYTHM POSSIBLE LEFT ATRIAL ENLARGEMENT [-0.1mV P WAVE IN V1/V2] POSSIBLE RIGHT VENTRICULAR CONDUCTION DELAY [RSR (QR) IN V1/V2] LEFT VENTRICULAR HYPERTROPHY AND ST-T CHANGE [VOLTAGE CRITERIA PLUS ST/T ABNORMALITY] PROBABLE ANTEROLATERAL MYOCARDIAL INFARCTION [35 ms Q WAVE IN I/aVL/V3-V6], OF INDETERMINATE AGE Compared to ECG 06/15/2021 09:02:40 Incomplete right bundle-branch block no longer present ST (T wave) deviation still present Myocardial infarct finding still present Electronically Signed On 06-15-2021 19:33:52 CDT by Sandhya Mckeon M.D. [id number]
[2021-06-15 10:46] LABS: SARS Covid-2 Antigen Negative (Negative)
[2021-06-15 11:06] LABS: Blood Urea Nitrogen 47 mg/dL (8-23); Calcium 8.8 mg/dL (8.5-10.5); NT Pro B Type Natriuretic Pept 1797 pg/mL (0-450)
[2021-06-15 11:12] LABS: Alkaline Phosphatase 146 IU/L (35-105); Aspartate Amino Transferase 32 U/L (0-32); Glucose 120 mg/dL (65-115); Osmolality Calculated 303 mOsm/kg (285-295); Total Protein 6.4 g/dL (6.6-8.7)
[2021-06-15] MEDS: iohexol 300 mg/mL 100 mL Btl IV (11:50)
[2021-06-15 12:01] LABS: Troponin 5 2HR 27.68 ng/L (0-10); Troponin 5 2HR Delta 1.68 ABS# (0-10)
[2021-06-15 12:39] VITALS: BP 166/80; PULSE 87; RESP 20; O2SAT 94
[2021-06-15 13:46] VITALS: BP 144/95; PULSE 87; RESP 20; O2SAT 94
[2021-06-16 14:17] LABS: Quest SARS-CoV-2 RNA NOT DETECTED (NOT DETECTED)
--- NOTE | 2021-06-16 17:47 | PC.NURSE ---
no answer when called to give covid results
== END 2021-06-15 13:48 | disposition home or self-care (01) ==
PROVIDERS: Emergency Provider Family Medicine; PCP Physician Assistant Medical
DX: J18.8 Other pneumonia, unspecified organism (principal); I10 Essential (primary) hypertension; Z87.891 Personal history of nicotine dependence; Z20.822 Contact with and (suspected) exposure to COVID-19
CPT/HCPCS: 36415; 71045; 74177; 80053; 83880; 84484; 85025; 87426; 87635; 93005; 99283; Q9967

== ENCOUNTER 2023-12-28 11:33 | Outpatient (CLI) | payer MEDICARE, MEDICAID, SELFPAY ==
--- NOTE | 2023-12-28 11:37 | USCV_ITS ---
Bel Russell Age: 83 Gender: F : 1940 Exam Date: 12/28/2023 12:03 Ordering Phys: Ronna Quesada Technologist: CT Exam Location: [facility] – [place] Indication: chf BP: 140 / 70 HR: 64 Rhythm: Sinus Technical Quality: Adequate MEASUREMENTS (Male / Female) Normal Values 2D ECHO LV Ejection Fraction MOD 2C 72.1 % LV Ejection Fraction 2C AL 71.8 % LA Diameter 4.7 cm Aorta at Sinotubular Diameter 1.9 cm IVC Diameter 1.4 cm M-MODE Aortic Annulus Diameter 3.0 cm LA Ao Ratio MM 1.5 MV E Point Septal Separation 0.8 cm DOPPLER AV Peak Velocity 176.0 cm/s LVOT Peak Velocity 143.0 cm/s MV E' Velocity 12.0 cm/s TR Peak Velocity 258.3 cm/s TR Peak Gradient 26.7 mmHg TV Peak E Velocity 79.0 cm/s Right Atrial Pressure 3.0 mmHg Pulmonary Artery Systolic Pressu 29.7 mmHg PV Peak Velocity 130.0 cm/s FINDINGS Left Ventricle Left ventricle is normal size. LV systolic function is normal with EF of 60 to 65%. No regional wall motion abnormalities are seen. Right Ventricle Normal in size and function Right Atrium Normal in size Left Atrium Normal in size Mitral Valve Structurally normal mitral valve. Mild mitral regurgitation Aortic Valve Structurally normal aortic valve. No significant stenosis or regurgitation. Tricuspid Valve Mild tricuspid regurgitation. Pulmonary artery systolic pressure is normal. Pulmonic Valve Not well-visualized Pericardium normal Aorta Normal in size IVC Appears to be normal CONCLUSIONS LV systolic function is normal with EF of 60 to 65%. Mild mitral regurgitation Mild tricuspid regurgitation No comparison studies are available. Wilver Hancock MD (Electronically Signed) Final Date: 01 January 2024 16:30 S
== END 2023-12-28 11:34 | disposition home or self-care (01) ==
LOC: RAD 11:35
PROVIDERS: PCP Nurse Practitioner Family; Visit Provider Registered Nurse
DX: I11.0 Hypertensive heart disease with heart failure (principal); I50.9 Heart failure, unspecified; I08.1 Rheumatic disorders of both mitral and tricuspid valves
CPT/HCPCS: 93306